=== PATIENT | male | born 1985 | race African-American/Black ===

== ENCOUNTER 2022-05-25 15:11 | Emergency (ER) | payer SELFPAY ==
[2022-05-25 15:17] VITALS: BP 148/88; PULSE 79; RESP 18; TEMP 37.2; O2SAT 98
--- NOTE | 2022-05-25 15:59 | ED.GENADULT ---
HPI - General Adult General Chief complaint: Skin/Abscess/Foreign Body Stated complaint: bite on left ear Source: patient Mode of arrival: ambulatory Limitations: no limitations History of Present Illness HPI narrative: Patient presents for evaluation of pain, swelling, redness, drainage from the external ear. He indicates he woke from sleep this morning with his symptoms. He assumed this was from a spider bite although he never saw the spider. No fever, chills, nausea, vomiting. He is not diabetic. Last tetanus was 2 years ago. He has not had any jewelry in his ear and does not remember any injury. He has applied hydrogen peroxide to the area several time. Related Data Allergies Allergy/AdvReac Type Severity Reaction Status Date / Time bee venom protein (honey bee) Allergy Other Verified 05/25/22 15:23 Review of Systems Review of Systems: CONSTITUTIONAL: Denies fever, chills, or sweats. EYES: Denies visual changes, redness, or discharge. ENT: Denies rhinorrhea, congestion, sore throat, or otalgia. CARDIOVASCULAR: Denies chest pain, palpitations, or edema. RESPIRATORY: Denies cough or dyspnea. GASTROINTESTINAL: Denies abdominal pain, nausea, vomiting, or diarrhea. GENITOURINARY: Denies dysuria or hematuria. SKIN: Reports swelling, redness, pain, drainage from the external aspect of the left ear MUSCULOSKELETAL: Denies back pain, joint pain, or myalgia. NEUROLOGIC: Denies headache, numbness, dizziness, or weakness. PSYCHIATRIC: Denies anxiety or depression. PMFSH Past Medical History Medical History (Updated 05/25/22 @ 16:06 by ALIN TerrellP, ) Perichondritis Surgical History Surgical History No pertinent past surgical history Family History Family History Mother Brain tumor Social History Social History (Updated 05/25/22 @ 16:06 by Wade Orlando [facility], ) Smoking status: Never smoker Alcohol intake: never Substance use: never Living arrangements: with family Sexual Orientation (if Verbalized by the Patient): Straight or Heterosexual Spiritual care concerns: No Exam Narrative: GENERAL: Well-appearing, well-nourished, and in no acute distress. HEAD: Normocephalic, atraumatic. EYES: PERRLA and EOMI. ENT: Nares clear, no rhinorrhea or epistaxis. Mucous membranes moist. Oropharynx without tonsillar hypertrophy exudate or other lesions. Bilateral TMs pearly dangelo nonbulging NECK: Supple. No adenopathy or masses. No carotid bruits or JVD CHEST: Clear to auscultation. No respiratory distress. No wheezes rales or rhonchi HEART: Regular rate and rhythm. No murmur heard. Normal peripheral pulses. ABDOMEN: Soft, nontender, nondistended, normal active bowel sounds. EXTREMITIES: Normal range of motion. No edema. SKIN: The helix of the left ear is edematous and erythematous. There is some dried serosanguinous drainage to helix of left ear. There are also two areas where serous fluid is present NEURO: No focal deficits. Alert and oriented x3. PSYCH: Normal mood and affect. Course Course Emergency Course: This is a 36-year-old male that presented with complaints of pain, swelling, redness, drainage to the helix of the left ear. Exam is consistent with perichondritis. UTD tetanus status. These are usually an infection by Pseudomonas we will place him on Cipro. We will also cover him for MRSA with Bactrim. He is up-to-date on tetanus. I advised he take photos of his ear at least twice daily and monitor response closely as there is risk for necrosis even with appropriate abx therapy. He should go immediately to the ER for decline in condition. Will also dc with [facility]. Follow up outpatient for further evaluation. Pt in agreement with plan of care Level of Care: Express Care Visit Vital Signs Vital signs: Vital Signs Temperature 37.2 C 05/25/22 15:17
== END 2022-05-25 16:04 | disposition home or self-care (01) ==
PROVIDERS: Emergency Provider Nurse Practitioner
DX: L53.9 Erythematous condition, unspecified (principal); H61.002 Unspecified perichondritis of left external ear
CPT/HCPCS: 87070; 87205; 99213; G0463

== ENCOUNTER 2022-06-09 13:53 | Emergency (ER) | payer SELFPAY ==
[2022-06-09 13:57] VITALS: BP 137/95; PULSE 66; RESP 16; TEMP 36.5; O2SAT 99
--- NOTE | 2022-06-09 13:58 | ED.SKABFB ---
HPI - Skin/Abscess/Foreign Bdy General Chief complaint: Skin/Abscess/Foreign Body Stated complaint: 2 bites on left arm Time Seen by Provider: 06/09/22 13:58 Source: patient and RN notes reviewed History of Present Illness HPI narrative: Patient is a 36-year-old male who presents the urgent care with complaints of possible brown recluse bites to the left arm. Patient states that he noticed them on Friday and have been keeping them clean with plain Dial soap and water. Patient states that he was at our facility on 25 May and he was placed on Cipro and Bactrim for the same type of bite to the ear. Patient states that it did resolve without any complications. Denies any fevers, nausea or vomiting. No other acute complaints. No acute distress noted. Patient aware of the plan of care. Some parts of this dictation were generated by voice recognition software and may contain typographical and/or grammatical inaccuracies. Related Data Allergies Allergy/AdvReac Type Severity Reaction Status Date / Time bee venom protein (honey bee) Allergy Other Verified 05/25/22 15:23 Review of Systems Review of Systems: CONSTITUTIONAL: Denies fever, chills, or sweats. EYES: Denies visual changes, redness, or discharge. ENT: Denies rhinorrhea, congestion, sore throat, or otalgia. CARDIOVASCULAR: Denies chest pain, palpitations, or edema. RESPIRATORY: Denies cough or dyspnea. GASTROINTESTINAL: Denies abdominal pain, nausea, vomiting, or diarrhea. GENITOURINARY: Denies dysuria or hematuria. SKIN: Reports a spider bite to the left arm MUSCULOSKELETAL: Denies back pain, joint pain, or myalgia. NEUROLOGIC: Denies headache, numbness, or weakness. All other systems reviewed are negative, except as documented in HPI. [facility] Past Medical History Medical History (Updated 06/09/22 @ 14:16 by MARSHA Bishop) Perichondritis Surgical History Surgical History No pertinent past surgical history Family History Family History Mother Brain tumor Social History Social History (Updated 05/25/22 @ 16:06 by MARSHA Terrell, ) Smoking status: Never smoker Alcohol intake: never Substance use: never Sexual Orientation (if Verbalized by the Patient): Straight or Heterosexual Spiritual care concerns: No Comments At the time of my signature, I reviewed and agree with the nursing past medical, surgical, social, and family history. There is no relevant family history pertinent to the patient complaint. Exam Narrative: GENERAL: This is a well-nourished, well-developed patient, in no apparent distress. HEAD: normocephalic, atraumatic. EYES: PERRL. Sclera clear/white. Vision is grossly intact. EARS: External ears normal NOSE: External nose normal with no obvious nasal discharge, nares without redness, no rhinorrhea. THROAT: Mucous membranes moist NECK: Neck supple SKIN: 0.5 cm open wound to the dorsal aspect of the left hand with mild surrounding erythema and edema. 1 cm open wound without necrosis to the left forearm with 4 x 4 centimeter surrounding erythema and mild edema NEURO: awake, alert, and oriented to person, place and time. There were no obvious focal neurologic abnormalities. EXTREMITIES: No clubbing, cyanosis, or edema. Course Course Level of Care: Express Care Visit Vital Signs Vital signs: Vital Signs Temperature 97.7 F 06/09/22 13:57 Pulse Rate 66 06/09/22 13:57 Respiratory Rate 16 06/09/22 13:57 Blood Pressure 137/95 H 06/09/22 13:57 Pulse Oximetry 99 06/09/22 13:57 Oxygen Delivery Room Air 06/09/22 13:57 Temperature 97.7 F 06/09/22 13:57 Pulse Rate 66 06/09/22 13:57 Respiratory Rate 16 06/09/22 13:57 Blood Pressure 137/95 H 06/09/22 13:57 Pulse Oximetry 99 06/09/22 13:57 Oxygen Delivery Room Air 06/09/22 13:57 Reviewed-patient is inf
== END 2022-06-09 14:28 | disposition home or self-care (01) ==
PROVIDERS: Emergency Provider Nurse Practitioner Family
DX: L03.114 Cellulitis of left upper limb (principal)
CPT/HCPCS: 87070; 87205; 99213; G0463